=== PATIENT | female | born 1950 | race Caucasian/White ===

== ENCOUNTER 2020-10-20 15:56 | Emergency (ER) | payer MEDICARE, OTHER ==
[2020-10-20] MEDS ORDERED: Sodium Chloride 0.9% 1000 ML 1,000 ML IV STA (16:09)
[2020-10-20] MEDS ORDERED: Zofran 4 MG/2 ML VIAL IV ONE (16:09)
[2020-10-20] MEDS ORDERED: SUBLIMAZE 100 MCG/2 ML IV ONE (16:09)
[2020-10-20] MEDS ORDERED: Zofran 4 MG/2 ML VIAL ONE (16:21)
[2020-10-20] MEDS ORDERED: Sodium Chloride 0.9% 1000 ML 1,000 ML ONE (16:22)
[2020-10-20] MEDS ORDERED: SUBLIMAZE 100 MCG/2 ML ONE (16:22)
[2020-10-20 16:30] LABS: Absolute Neutrophil Ct (ANC) 10.93 (1.4-6.9); BASOPHIL % 0.6 % (0.0-0.4); Basophil (Absolute #) 0.08 (0-0.4); Eosinophil % 0.7 % (0.00-5.0); Hematocrit 42.2 % (35-47); Hemoglobin 13.5 gm/dl (12.0-16.0); Lymphocyte (Absolute #) 2.09 (1.0-4.6); Mean Cell Volume 91.5 fl (78-100); Mean Corpuscular Hemoglobin 29.3 pg (26-32); Mean Platelet Volume 10.5 fl (7.5-11.0); Neutrophil % 78.7 % (36.0-66.0); Platelet Count 301 K/mm3 (150-450); Red Blood Count 4.61 M/mm3 (4.1-5.4); Red Cell Distribution Width 14.2 % (11.5-14.0); White Blood Count 13.9 K/mm3 (4.0-10.5)
[2020-10-20 16:44] LABS: ALBUMIN 4.6 g/dL (3.5-5.0); ALKALINE PHOSPHATASE 89 U/L (38-126); AMYLASE 70 U/L (30-110); ANION GAP 16.5 MEQ/L (5-15); BLOOD UREA NITROGEN 17 mg/dL (7-17); CHLORIDE 103 mmol/L (98-107); Calcium 10.2 mg/dL (8.4-10.2); Carbon Dioxide 23 mmol/L (22-30); Creatinine 1 0.97 mg/dL (0.52-1.04); EST GLOMERULAR FILTRATION RATE > 60.0 ML/MIN; Glucose 111 mg/dL (74-106); LIPASE 51 U/L (23-300); Potassium 4.1 mmol/L (3.5-5.1); SGOT/AST 30 U/L (14-36); SGPT/ALT 21 U/L (0-35); SODIUM 139 mmol/L (137-145); Total Protein 7.6 g/dL (6.3-8.2)
[2020-10-20] MEDS ORDERED: Hydromorphone 1 mg/ml Injection IV ONE (17:05)
[2020-10-20] MEDS ORDERED: Hydromorphone 1 mg/ml Injection ONE (17:08)
--- NOTE | 2020-10-20 18:58 | ERPHSYRPT ---
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 pt and were traveling from [place] back to [place] when pain onset in the car. rates 01/25. pt groaning, gaurding, and clammy. Physician History: Patient is a 69-year-old white female who is traveling through the area who 3 hours ago while driving developed severe abdominal pain. She had a bowel movement today but states that she felt constipated afterwards so she took 2 laxative and now she is in severe pain. She has had her appendix and her gallbladder removed in the past. Timing/Duration: today Activities at Onset: other (Driving) Abdominal Pain Onset Location: LLQ Pain Radiation: no radiation Severity of Pain-Max: severe Severity of Pain-Current: moderate Modifying Factors: Improves With: movement Associated Symptoms: nausea Previous symptoms: no prior history Allergies/Adverse Reactions: Penicillins Allergy (Verified 10/20/20 16:14) Sulfa (Sulfonamide Antibiotics) Allergy (Verified 10/20/20 16:14) Home Medications: Ergocalciferol (Vitamin D2) [Vitamin D2] 50,000 units PO WEEKLY 10/20/20 [History] Meloxicam [Mobic] 15 mg PO DAILY 10/20/20 [History] Multivitamin [Multi-Vitamin Daily] 1 each PO DAILY 10/20/20 [History] Hx Tetanus, Diphtheria Vaccination/Date Given: Yes Hx Influenza Vaccination/Date Given: No Hx Pneumococcal Vaccination/Date Given: Yes Immunizations Up to Date: Yes Travel Risk - International Travel Have you traveled outside of the country in past 3 weeks: No - Coronavirus Screening Are you exhibiting any of the following symptoms?: No Close contact with a COVID-19 positive Pt in past 14-21 Days: No - Vaccine Status Have you recieved a Covid-19 vaccination: Yes [employer]: Moderna - Vaccination Dates Date of 2cond Vaccination (if applicable): July - Review of Systems Constitutional: No Fever, No Chills Eyes: No Symptoms Ears, Nose, & Throat: No Symptoms Respiratory: No Cough, No Dyspnea Cardiac: No Chest Pain, No Edema, No Syncope Abdominal/Gastrointestinal: Abdominal Pain, Nausea, Vomiting, No Diarrhea Genitourinary Symptoms: No Dysuria Musculoskeletal: No Back Pain, No Neck Pain Skin: No Rash Neurological: No Dizziness, No Focal Weakness, No Sensory Changes Psychological: No Symptoms Endocrine: No Symptoms All Other Systems: Reviewed and Negative - Past Medical History Pertinent Past Medical History: Yes Cardiac History: High Cholesterol Other Medical History: bone density problems - Past Surgical History Past Surgical History: Yes Gastrointestinal: Appendectomy, Cholecystectomy 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 - Social History Smoking Status: Current every day smoker How long have you smoked: years Exposure to second hand smoke: Yes Drug Use: none Patient Lives Alone: No - Nursing Vital Signs Nursing Vital Signs: Initial Vital Signs Temperature 96.0 F 10/20/20 16:01 Pulse Rate 91 H 10/20/20 16:01 Respiratory Rate 20 10/20/20 16:01 Blood Pressure 162/75 10/20/20 16:01 O2 Sat by Pulse Oximetry 95 10/20/20 16:01 Pain Scale Pain Intensity 4 - Physical Exam General Appearance: mild distress, alert Eye Exam: PERRL/EOMI, eyes nml inspection Ears, Nose, Throat Exam: normal ENT inspection, pharynx normal, moist mucous membranes Neck Exam: normal inspection, non-tender, supple, full range of motion Respiratory Exam: normal breath sounds, lungs clear, No respiratory distress Cardiovascular Exam: regular rate/rhythm, normal heart sounds Gastrointestinal/Abdomen Exam: soft, tenderness, guarding, No mass Back Exam: normal inspection, normal range of motion, No CVA tenderness, No vertebral tenderness Extremity Exam: normal inspection, normal range of motion, pelvis stable Neurologic Exam: alert, oriented x 3, cooperative, normal mood/affect, nml cerebellar function, sensation nml, No motor deficits Skin Exam: normal color, warm, dry SpO2: 97 - Course Nursing assessment & vital signs reviewed: Yes - Radiology Exams Chest X-ray Interpretation: Interpreted by me, Other (Chest x-ray was negative) - CT Exams Abdomen/Pelvis CT Interpretation: Tele-radiologist Report, Other (CT scan of the abdomen pelvis shows a 1.2 cm urinary bladder mass adjacent to the UVJ on the left producing high-grade obstruction with mild left hydroureter moderate hydronephrosis and small perinephric fluid a small hiatal hernia 1 cm hepatic cyst 1 cm calcified uterine fibroid was also noted) Ordered Tests: Active Orders 24 hr Category Date Time Status EKG-ER Only STAT Care 10/20/20 16:09 Active IV Insertion STAT Care 10/20/20 16:09 Active ABDOMEN AND PELVIS W CONTRAST [CT] Stat Exams 10/20/20 16:10 Taken CHEST 1 VIEW (PORTABLE) Stat Exams 10/20/20 16:10 Taken AMYLASE Stat Lab 10/20/20 16:20 Completed CBC W DIFF Stat Lab 10/20/20 16:20 Completed CMP Stat Lab 10/20/20 16:20 Completed LIPASE Stat Lab 10/20/20 16:20 Completed Lactic Acid Stat Lab 10/20/20 16:09 Completed TROPONIN Q3H Lab 10/20/20 16:15 Completed TROPONIN Q3H Lab 10/20/20 19:15 Ordered TROPONIN Q3H Lab 10/20/20 22:15 Ordered TROPONIN Q3H Lab 10/21/20 01:15 Ordered TROPONIN Q3H Lab 10/21/20 04:15 Ordered UA W/RFX UR CULTURE Stat Lab 10/20/20 16:10 Ordered Urine Triage Profile Stat Lab 10/20/20 16:10 Ordered Medication Summary Discontinued Medications Generic Name Dose Route Start Last Admin Trade Name Freq PRN Reason Stop Dose Admin Fentanyl Citrate 50 mcg 10/20/20 16:09 10/20/20 16:25 Sublimaze 100 Mcg/2 Ml IV 10/20/20 16:10 50 mcg STAT ONE Administration Fentanyl Citrate Confirm 10/20/20 16:22 Sublimaze 100 Mcg/2 Ml Administered 10/20/20 16:23 Dose 100 mcg .ROUTE .STK-MED ONE Hydromorphone HCl 1 mg 10/20/20 17:05 10/20/20 17:09 Hydromorphone 1 Mg/Ml Injection IV 10/20/20 17:06 1 mg STAT ONE Administration Hydromorphone HCl Confirm 10/20/20 17:08 Hydromorphone 1 Mg/Ml Injection Administered 10/20/20 17:09 Dose 1 mg .ROUTE .STK-MED ONE Sodium Chloride 1,000 mls @ 999 mls/hr 10/20/20 16:09 10/20/20 18:01 Sodium Chloride 0.9% 1000 Ml IV 10/20/20 17:09 Infused .Q1H1M STA Infusion Sodium Chloride Confirm 10/20/20 16:22 Sodium Chloride 0.9% 1000 Ml Administered 10/20/20 16:23 Dose 1,000 mls @ ud .ROUTE .STK-MED ONE Ondansetron HCl 4 mg 10/20/20 16:09 10/20/20 16:25 Zofran 4 Mg/2 Ml Vial IV 10/20/20 16:10 4 mg STAT ONE Administration Ondansetron HCl Confirm 10/20/20 16:21 Zofran 4 Mg/2 Ml Vial Administered 10/20/20 16:22 Dose 4 mg .ROUTE .STK-MED ONE Lab/Rad Data: Laboratory Result Diagrams 10/20/20 16:20 10/20/20 16:20 Laboratory Results 10/20/20 10/20/20 10/20/20 Range/Units 16:20 16:20 16:15 WBC 13.9 H (4.0-10.5) K/mm3 RBC 4.61 (4.1-5.4) M/mm3 Hgb 13.5 (12.0-16.0) gm/dl Hct 42.2 (35-47) % MCV 91.5 (78-100) fl MCH 29.3 (26-32) pg MCHC 32.0 (32-36) g/dl RDW 14.2 H (11.5-14.0) % Plt Count 301 (150-450) K/mm3 MPV 10.5 (7.5-11.0) fl Gran % 78.7 H (36.0-66.0) % Eos # (Auto) 0.10 (0-0.5) Absolute Lymphs (auto) 2.09 (1.0-4.6) Absolute Monos (auto) 0.70 (0.0-1.3) Lymphocytes % 15.0 L (24.0-44.0) % Monocytes % 5.0 (0.0-12.0) % Eosinophils % 0.7 (0.00-5.0) % Basophils % 0.6 (0.0-0.4) % Absolute Granulocytes 10.93 H (1.4-6.9) Basophils # 0.08 (0-0.4) Sodium 139 (137-145) mmol/L Potassium 4.1 (3.5-5.1) mmol/L Chloride 103 (98-107) mmol/L Carbon Dioxide 23 (22-30) mmol/L Anion Gap 16.5 H (5-15) MEQ/L BUN 17 (7-17) mg/dL Creatinine 0.97 (0.52-1.04) mg/dL Estimated GFR > 60.0 ML/MIN Glucose 111 H (74-106) mg/dL Lactic Acid (0.4-2.0) Calcium 10.2 (8.4-10.2) mg/dL Total Bilirubin 0.50 (0.2-1.3) mg/dL AST 30 (14-36) U/L ALT 21 (0-35) U/L Alkaline Phosphatase 89 (38-126) U/L Troponin I 0.019 (0.000-0.034) ng/mL Serum Total Protein 7.6 (6.3-8.2) g/dL Albumin 4.6 (3.5-5.0) g/dL Amylase 70 (30-110) U/L Lipase 51 (23-300) U/L /09/05 Range/Units 16:09 WBC (4.0-10.5) K/mm3 RBC (4.1-5.4) M/mm3 Hgb (12.0-16.0) gm/dl Hct (35-47) % MCV (78-100) fl MCH (26-32) pg MCHC (32-36) g/dl RDW (11.5-14.0) % Plt Count (150-450) K/mm3 MPV (7.5-11.0) fl Gran % (36.0-66.0) % Eos # (Auto) (0-0.5) Absolute Lymphs (auto) (1.0-4.6) Absolute Monos (auto) (0.0-1.3) Lymphocytes % (24.0-44.0) % Monocytes % (0.0-12.0) % Eosinophils % (0.00-5.0) % Basophils % (0.0-0.4) % Absolute Granulocytes (1.4-6.9) Basophils # (0-0.4) Sodium (137-145) mmol/L Potassium (3.5-5.1) mmol/L Chloride (98-107) mmol/L Carbon Dioxide (22-30) mmol/L Anion Gap (5-15) MEQ/L BUN (7-17) mg/dL Creatinine (0.52-1.04) mg/dL Estimated GFR ML/MIN Glucose (74-106) mg/dL Lactic Acid 1.5 (0.4-2.0) Calcium (8.4-10.2) mg/dL Total Bilirubin (0.2-1.3) mg/dL AST (14-36) U/L ALT (0-35) U/L Alkaline Phosphatase (38-126) U/L Troponin I (0.000-0.034) ng/mL Serum Total Protein (6.3-8.2) g/dL Albumin (3.5-5.0) g/dL Amylase (30-110) U/L Lipase (23-300) U/L - Progress Progress: improved Progress Note: 10/20/20 19:01 The patient was somewhat distressed that she had a mass that was blocking the left ureter but she understood the necessity of urology consult. She wishes to go to her home in [place] which is approximately 9 hours away. We will treat her pain as best we can until she gets to [place] and she has a family doctor there who will arrange her urology consult. - Departure Departure Disposition: Home Clinical Impression: Hydronephrosis, left, Bladder mass Condition: Fair Critical Care Time: No Referrals: DOCTOR,NO FAMILY [Primary Care Provider] - Instructions: Hydronephrosis, Adult (DC) Prescriptions: Oxycodone / APAP 10/325 mg [Oxycodone-Acetaminophen 10-325] 1 tab PO Q4H 3 Days #12 tablet MDD 6
[2020-10-20 19:26] VITALS: BP 138/70; PULSE 76; O2SAT 98
--- NOTE | 2020-10-21 08:51 | XRAY ---
Indication: Left abdomen/flank pain. Multiple contiguous axial images obtained through the abdomen and pelvis using 80 cc Isovue 370 contrast. Comparison: None Lung bases demonstrate mild bilateral dependent atelectasis. No infiltrate or effusion. Heart not enlarged. Small hiatal hernia. Noncontrasted stomach and bowel loops appear nonobstructed. Appendectomy, cholecystectomy, and tubal ligation reported. Prominent common bile duct, not unusual for cholecystectomy. 1 cm right lobe hepatic cyst. Uterus demonstrates 1 cm fundal calcified fibroid. Multiple splenic calcified granulomas. Both kidneys enhance. Left kidney appears edematous with moderate hydronephrosis and small perinephric fluid. Left ureter is also mildly prominent without calculus. Delayed images demonstrates a 1.2 cm posterior urinary bladder mass adjacent to the UVJ which may explain obstructive uropathy. Left kidney demonstrates little to no excretion on delayed images favoring high-grade obstruction. Remaining liver, pancreas, spleen, adrenal glands, right kidney, right ureter, urinary bladder, and uterus unremarkable. Mild scattered aortoiliac calcifications. No AAA or pathological retroperitoneal lymphadenopathy. Osseous structures intact with mild degenerative changes throughout the spine. Impression: 1. Suspect left posterior urinary bladder mass producing high-grade obstructive uropathy as detailed. 2. Incidental small hiatal hernia, small hepatic cyst, small uterine calcified fibroid, chronic bony findings, and old granulomatous disease.
--- NOTE | 2020-10-21 08:55 | XRAY ---
Indication: Left abdomen pain. Comparison: None Portable chest hyperinflated with minimal scattered fibrosis/scarring bilaterally. No focal infiltrate, consolidation, or large effusion. Heart and mediastinal structures within normal limits. Bony thorax intact with mild osteopenia, degenerative changes, and old right 3rd/left 5th rib fractures. Impression: Nonacute hyperinflated chest with chronic features.
== END 2020-10-20 19:25 | disposition home or self-care (01) ==
LOC: ED 15:56
DX: N13.30 Unspecified hydronephrosis (principal); M32.9 Systemic lupus erythematosus, unspecified; N32.9 Bladder disorder, unspecified
CPT/HCPCS: 36000; 36415; 71045; 74177; 80053; 82150; 83605; 83690; 84484; 85025; 93005; 96374; 96375; 99284; J1170; J2405; J3010